=== PATIENT | female | born 1970 | race African-American/Black ===

== ENCOUNTER 2017-01-07 10:17 | Emergency (ER) | payer MEDICAID, OTHER ==
[~2017-01-07] VITALS: Ht 162.6 cm; Wt 98.0 kg
[2017-01-07 10:23] VITALS: BP 165/84
[2017-01-07] MEDS ORDERED: KETOROLAC 60MG/2ML VIAL IM ONE (12:30)
== END 2017-01-07 14:32 | disposition home or self-care (01) ==
LOC: ER 10:17
DX: M54.32 Sciatica, left side (principal); M79.605 Pain in left leg; I10 Essential (primary) hypertension; Z98.890 Other specified postprocedural states; Z90.710 Acquired absence of both cervix and uterus
CPT/HCPCS: 93971; 96372; 99284; J1885